=== PATIENT | male | born 1970 | race Caucasian/White ===

== ENCOUNTER 2020-12-28 22:52 | Emergency (ER) | payer OTHER, SELFPAY ==
[2020-12-28] MEDS ORDERED: Boostrix 0.5 ML (Tdap) VIAL ONE (23:14)
[2020-12-28] MEDS ORDERED: Lidocaine 1% w/Epinephrine 1:100K 20 ML VIAL ONE (23:23)
[2020-12-28] MEDS ORDERED: TETANUS AND DIPHTHERIA TOX/PF 0.5 ML DISP.SYRIN ONE (23:38)
== END 2020-12-29 00:13 | disposition home or self-care (01) ==
LOC: MADERS 22:52
DX: S05.42XA Penetrating wound of orbit with or without foreign body, left eye, initial encounter (principal); S01.81XA Laceration without foreign body of other part of head, initial encounter; F17.210 Nicotine dependence, cigarettes, uncomplicated; W01.0XXA Fall on same level from slipping, tripping and stumbling without subsequent striking against object, initial encounter
CPT/HCPCS: 12014; 90471; 90714; 90715